=== PATIENT | male | born 1985 | race African-American/Black ===

== ENCOUNTER 2017-07-14 03:43 | Emergency (ER) | payer SELFPAY ==
[~2017-07-14] VITALS: Ht 172.7 cm; Wt 88.0 kg
[2017-07-14] MEDS ORDERED: TETANUS-DIPTH-ACEL PERTUSSIS 0.5ML SYRG IM ONE (07:15)
[2017-07-14] MEDS ORDERED: NEOMYCIN-BACITRACIN-POLYM UNITDOSE PKG TOP OINT TOP ONE (07:15)
[2017-07-14] MEDS ORDERED: LIDOCAINE 1% HCL (LOCAL ANESTH.) INJ 20ML MDV IJ ONE (07:15)
[2017-07-14 07:33] VITALS: BP 125/82
== END 2017-07-14 08:01 | disposition home or self-care (01) ==
LOC: ER 03:45
DX: S01.511A Laceration without foreign body of lip, initial encounter (principal); V73.5XXA Driver of bus injured in collision with car, pick-up truck or van in traffic accident, initial encounter; Y93.89 Activity, other specified; Y92.89 Other specified places as the place of occurrence of the external cause; Y99.8 Other external cause status
CPT/HCPCS: 12013; 90471; 90715; 99283; J2001

== ENCOUNTER 2017-07-16 21:58 | Emergency (ER) | payer SELFPAY ==
[~2017-07-16] VITALS: Ht 172.7 cm; Wt 90.7 kg
[2017-07-16 22:13] VITALS: BP 140/100
== END 2017-07-17 00:03 | disposition home or self-care (01) ==
LOC: ER 21:58
DX: S01.511D Laceration without foreign body of lip, subsequent encounter (principal); X58.XXXD Exposure to other specified factors, subsequent encounter

== ENCOUNTER 2017-07-22 11:08 | Emergency (ER) | payer SELFPAY ==
[~2017-07-22] VITALS: Ht 172.7 cm; Wt 90.7 kg
[2017-07-22 11:45] VITALS: BP 124/79
== END 2017-07-22 12:00 | disposition home or self-care (01) ==
LOC: ER 11:08
DX: S01.511D Laceration without foreign body of lip, subsequent encounter (principal); X58.XXXD Exposure to other specified factors, subsequent encounter